=== PATIENT | female | born 1990 ===

== ENCOUNTER → 2017-12-30 | Outpatient (CLI) | payer OTHER | LOC: LAB 13:05 | PROVIDERS: ATTEND Obstetrics & Gynecology | DX: N92.6 Irregular menstruation, unspecified (principal) | CPT/HCPCS: 36415; 84702 ==

== ENCOUNTER → 2018-04-10 | Outpatient (REF) | payer OTHER | LOC: ZZSENDIN 14:08 | PROVIDERS: ATTEND Family Medicine | DX: R31.29 Other microscopic hematuria (principal) | CPT/HCPCS: 81001; 84702 ==

== ENCOUNTER → 2018-04-24 | Outpatient (CLI) | payer OTHER | LOC: LAB 12:13 | PROVIDERS: ATTEND Obstetrics & Gynecology | DX: O20.0 Threatened abortion (principal) | CPT/HCPCS: 36415; 84702 ==

== ENCOUNTER 2018-05-09 07:05 | Day surgery (SDC) | payer OTHER ==
[2018-05-09] MEDS ORDERED: PROPOFOL EMUL(*) 10MG/ML 20 ML 20 ML ONE (07:50)
[2018-05-09] MEDS ORDERED: LIDOCAINE MPF 1% 5 ML VIAL ONE (07:50)
[2018-05-09] MEDS ORDERED: fentaNYL CITR 100 MCG/2 ML AMP ONE ×2 (07:50→12:02)
[2018-05-09] MEDS ORDERED: METOCLOPRAMIDE 10 MG/2 ML SDV ONE (07:50)
[2018-05-09] MEDS ORDERED: ONDANSETRON 4 MG/2 ML VIAL ONE (07:50)
[2018-05-09] MEDS ORDERED: SUGAMMADEX SOD 200 MG/2 ML SDV ONE (07:50)
[2018-05-09] MEDS ORDERED: DEXAMETHASONE SOD 4 MG/ML VIAL ONE (07:50)
[2018-05-09] MEDS ORDERED: FAMOTIDINE(*) 20MG/50ML PREMIX 50 ML IVPB ONE (08:03)
[2018-05-09] MEDS ORDERED: NORMOSOL R SOLN(*) 1000 ML BAG 1,000 ML IV ONE (08:03)
[2018-05-09] MEDS ORDERED: ROPIVACAINE 0.2% 20 ML VIAL ONE (09:19)
--- NOTE | 2018-05-09 09:36 | RADIOLOGY IMAGING REPORT ---
FACILITY: [facility] PATIENT NAME: Orly Lara : 1990 MR: [id number] V: [id number] EXAM DATE: ORDERING PHYSICIAN: LISA ROSENBERG TECHNOLOGIST: Location: [facility] Patient: Orly Lara : 1990 Visit/Account:[id number] Date of Sevice: 05/09/2018 OB TRANSVAGINAL HISTORY: Beta-hCG of 12,000. EXAMINATION: Transabdominal and transvaginal pelvic ultrasound with duplex Doppler evaluation. COMPARISON: None. FINDINGS: Uterus: There is a 3 x 3 x 3.6 cm mass with peripheral vascularity in the left cornua of the uterus. No IUP identified. Endometrium: Uniformly thickened at 23 mm. No gestational sac seen. Cervix: negative Ovaries: Right ovary measuring 2.8 x 1.3 x 2.8 cm. Left ovary measuring 5.3 x 2.9 x 4.4 cm. Blood flow is documented in each ovary by duplex Doppler ultrasound. Adnexa: negative Free pelvic fluid: none IMPRESSION: 1. Thickened endometrium and corneal mass in the uterus. In the context of a beta-hCG of 12,000 lucy rning for a more . 2. Cortical mass likely represents an exophytic fibroid. Whether this represents continuum of the mol ar is uncertain. Next 3. Simple appearing cyst in left ovary. No obvious evidence of an ectopic Results were discussed with LISA ROSENBERG at 05/09/2018 9:31 AM. Report Dictated By: Elliot Chopra MD at 05/09/2018 9:08 AM Report E-Signed By: Elliot Chopra MD at 05/09/2018 9:32 AM WSN:[id number]
[2018-05-09] MEDS ORDERED: KETOROLAC 30 MG/ML VIAL ONE (11:21)
[2018-05-09 11:22] LABS: PLATELET COUNT, AUTOMATED 349 K/uL (150-450)
[2018-05-09] MEDS ORDERED: LR(*) 1000 ML BAG 1,000 ML IV ONE (11:51)
--- NOTE | 2018-05-09 11:51 | Post Operative Note ---
Operative Note - [facility] Operative Day Date: May 09, 2018 Time: 11:50 Physicians Surgeon: Ambrocio Anesthesia: GETA Diagnosis Pre-Op Diagnosis: ectopic KAILA cyst Left cornual uterine fibroid Post-Op Diagnosis: same incomplete SAB Procedure Findings: see report Procedure(s): L-scope diagnostic L-scope left cystectomy Suction dilation and curretage Specimen Removed:(Maybe N/A): POC Complications: [id number] Fluids Fluids: 2000 ml Estimated Blood Loss: minimal Dictated Date OP Note Dictated: May 09, 2018 Time OP Note Dictated: 11:51 Copies to: LISA ROSENBERG MD ; LISA ROSENBERG MD May 09, 2018 11:51
[2018-05-09] MEDS ORDERED: LOR5/325 PO (11:54)
--- NOTE | 2018-05-09 11:56 | Short(Outpt) Discharge Summary ---
Discharge Summary Reason for Hosp/Final Diag: (1) Incomplete Hospital Course & Plan: s/p diagnostic laparoscopy, dilation and curettage Departure Discharge to: Home, Self Care Discharge Instructions Home Meds Active Scripts Hydrocodone Bit/Acetaminophen (HYDROCODON-ACETAMINOPHEN 5-325) 1 Each Tablet, 2 EACH PO Q6H PRN for PAIN, #20 TAB 0 Refills Prov:LISA ROSENBERG MD 05/09/18 Follow up Referrals: [facility] - 05/11/18 @ [facility] with LISA ROSENBERG MD Diet: Regular Activity: As Tolerated Copies to: LISA ROSENBERG MD ; LISA ROSENBERG MD May 09, 2018 11:56
[2018-05-09] MEDS ORDERED: APAP/HYDROCODONE 325/5 TAB ONE (12:31)
--- NOTE | 2018-05-09 16:03 | OPERATIVE REPORT 1 ---
EVENT DATE: May 09, 2018 SURGEON: Elmer Albrecht MD ANESTHESIOLOGIST: Mihir Spence MD ANESTHESIA: General endotracheal anesthesia. PREOPERATIVE DIAGNOSES 1. Ectopic . 2. Left cornual uterine fibroid. 3. Left ovarian cyst. POSTOPERATIVE DIAGNOSES 1. Abnormal intrauterine . 2. Left ovarian simple cyst. 3. Left cornual uterine fibroid. PROCEDURES PERFORMED 1. Suction dilatation and curettage. 2. Diagnostic laparoscopy. 3. Laparoscopic left ovarian cystectomy. FINDINGS 1. Apparent products of conception evacuated from the uterine cavity, although no gestational sac was seen on ultrasound. 2. Simple-appearing left ovarian cyst with straw-colored fluid within. 3. Left cornual uterine fibroid. 4. No apparent ectopic . 5. Normal-appearing appendix and right upper quadrant. 6. There was no hemoperitoneum noted when we entered the abdominal cavity. INDICATIONS This is a pleasant, 27-year-old [place] female, G1, P0, who presented to my office two days ago for a new OB exam. She was found to have a rising quant, and on 04/24/18, she had a quant of 6000. However, on her new OB exam, I could not find a definite intrauterine . We did see a left ovarian cyst, a normal-appearing right ovary, and what appeared to be a solid mass in the left cornual region of the uterus, supposed to be uterine fibroid. She did have a very thickened endometrial stripe. Therefore, the working diagnosis at the time was an incomplete spontaneous , and we elected to proceed with following her quantitative hCG. She was not having any symptoms. Her quantitative hCG obtained yesterday was 18,000; therefore, it naila significantly with no apparent evidence of an intrauterine other than the thickened endometrium. Therefore, the working diagnosis became ectopic . I had her come to the hospital today for surgical management considering her quantitative hCG was so high. She was consented for a diagnostic laparoscopy with removal of ectopic , suction dilation and curettage, and removal of any diseased or damaged tissue. PROCEDURE IN DETAIL The patient was brought to the operating room with a working IV, placed in the dorsal supine position. She was placed under general endotracheal anesthesia and moved to the dorsal lithotomy position. She was then prepped and draped in the usual sterile fashion. A weighted speculum was placed in the vagina, and cervix was grasped on the anterior lip with a single-tooth tenaculum. It was sounded to a depth of 11 cm. The cervix was carefully dilated to a size 10 Hegar dilator, and a 10 mm curved suction curette was selected, assembled, and passed through the cervix into the uterus, and suction was applied to a pressure of 40 mmHg. It was rotated about while it was carefully withdrawn, removing a large amount of uterine contents. An additional pass removed a scant amount; therefore, a sharp bovine curette was passed through the cervix into the uterus, and all four quadrants of the uterine cavity were curetted until a gritty texture was palpable. An additional pass with the curved suction curette removed a scant amount of tissue. Therefore, the suction dilation curettage procedure was terminated, and a 10 cm RACHAEL uterine manipulator was passed through the cervix into the uterus. Bulb was inflated and secured, and all other instruments were then removed. Bladder had been drained at prep, and we proceeded with laparoscopy after gloves were changed. The umbilicus was infiltrated with 0.2% Naropin, and a 5 mm stab incision was made. A Veress needle was passed through this incision into the abdomen, and a pneumoperitoneum was created to an intra-abdominal pressure of 20 mmHg. The Veress needle was removed, and a 5 mm bladeless trocar was passed through this incision into the abdomen under direct visualization with the scope. Two additional 5 mm ports were placed in the suprapubic and left lower quadrant locations under a similar technique and without incident. The pressure was reduced to 15 mmHg once all ports had been placed. The abdomen and pelvis were surveyed with the above findings noted. During the case, an inspection of the left cornual side of the uterus was done as I was concerned that this could have been a cornual ectopic . There was a bluish hue on the posterolateral side of this apparent mass. I visualized the left ovary, and this appeared to be consistent with a simple cyst. The right ovary appeared to be normal in all respects. Both tubes were thoroughly inspected and found to be free of any kind of ectopic or masses. I inspected the abdomen. All tissues that were within view of the scope revealed no visible sign of an ectopic . Therefore, I scrubbed out of the procedure and had the specimen taken from the D and C sent to Pathology for frozen section. I walked down to Pathology, and with Dr. Ramirez, examined tissue under the microscope and could not definitively find chorionic villi with the limited sample that we had performed. Nevertheless, I reviewed the images again on ultrasound that was obtained this morning when she presented to the Emergency Room, and again, this mass under question appears solid in nature and does not appear consistent with an ectopic . I did not feel it was reasonable then to cut into her uterus at this point to try to find an ectopic that would prove to be uterine fibroid. It is my working diagnosis that, indeed, we were dealing with an incomplete spontaneous . Quants had just risen, and perhaps there is a molar within this tissue; therefore, I will have to wait for frozen section. If her quantitative hCG does not drop, then we still will have to consider removal of this left cornual portion of the uterus. Therefore, I scrubbed back into the case and proceeded with a left ovarian cystectomy by placing that ovary into view and making a linear incision along the length of the cyst on the most translucent portion of the cyst wall. Straw-colored fluid was extruded. A scant amount of bleeding was noted upon completion. There was no cyst wall to dissect out; therefore, the ovary was left without any further procedure. The pelvis was copiously irrigated and suctioned dry. The pneumoperitoneum was released. All instruments were removed from the abdomen. Skin incisions were repaired with 4-0 Monocryl simple subdermal and covered with Dermabond skin adhesive. The RACHAEL uterine manipulator was removed without incident. She was awakened from general anesthesia and taken to Recovery in stable condition. MARCO ANTONIO
== END 2018-05-09 13:15 | disposition home or self-care (01) ==
LOC: OR 07:05
PROVIDERS: ATTEND Obstetrics & Gynecology
DX: O03.4 Incomplete spontaneous abortion without complication (principal); N83.292 Other ovarian cyst, left side; D25.9 Leiomyoma of uterus, unspecified
CPT/HCPCS: 58662; 59820; 76817; 84702; 85025; 88305; 88331; 88332; J1100; J1885; J2001; J2405; J2704; J2765; J2795; J3010; J3490